=== PATIENT | male | born 1960 | race American Indian/Alaskan Native ===

== ENCOUNTER 2018-08-14 10:24 | Outpatient (CLI) | payer BC | END 2018-08-14 10:25 | disposition home or self-care (01) | LOC: C.RADIC 10:24 | DX: M54.5 Low back pain (principal) ==

== ENCOUNTER 2018-08-15 15:30 | Outpatient (CLI) | payer BC | END 2018-08-15 15:31 | disposition home or self-care (01) | LOC: C.USIC 15:31 ==

== ENCOUNTER 2018-08-29 13:49 | Outpatient (CLI) | payer BC | END 2018-08-29 13:50 | disposition home or self-care (01) | LOC: C.RADIC 13:49 | DX: M25.559 Pain in unspecified hip (principal) ==